=== PATIENT | female | born 1980 | race Caucasian/White ===

== ENCOUNTER → 2019-08-24 | Outpatient (CLI) | payer OTHER ==
--- NOTE | 2019-08-24 16:52 | MAM ---
EXAM DESCRIPTION: Diagnostic Mammo,Left (accession [id number]), Breast,Left (accession [id number]): Ultrasound CLINICAL HISTORY: 39 yearsFemaleABN MAMMO . Focal asymmetry left breast COMPARISON: Bilateral screening digital breast tomosynthesis July 11. TECHNIQUE: Left breast LM projection full-field images, digital tomosynthesis technique. Bilateral 2-D digital full-field images: LM and CC projections. CAD available for 2-D images.. Transcutaneous scanning of the left breast utilizing phelan-scale and Doppler modes. Scanning performed by the production lead ; observation by Dr. Ely. FINDINGS: The breast parenchymal density pattern is: Heterogeneously dense breast tissue, which may obscure small masses. No skin thickening or nipple retraction focal asymmetry again seen in the anterior third lower inner quadrant left breast. Associated with a solitary microcalcification. Left axillary lymph node. No new focal, stellate mass or density, and no suspicious microcalcifications left breast. Ultrasound: Scanning in the anterior aspect of the lower inner quadrant of the left breast. Focal fibroglandular tissues and fibrocystic tissues in the region of interest. One cyst measures approximately 5 x 3 mm with well-defined carreno, wider than tall orientation and posterior acoustic enhancement. No dominant solid mass, no large calcifications. No overlying skin changes. IMPRESSION: Benign exam. Fibroglandular and fibrocystic tissues. BIRAD CATEGORY: 2 BENIGN FINDINGS. RECOMMENDATIONS: FOLLOW UP: Return to routine digital bilateral mammographic screening, one year interval from June 2019. Written communication explaining the IMPRESSION and follow-up, will be mailed to the patient and referring health care provider. According to the [employer], yearly mammograms are recommended starting at age 40 and continuing as long as a woman is in good health. Any breast change noted on a breast self-exam should be reported promptly to the patient's healthcare provider. Breast MRI is recommended for women with an approximately 20-25% or greater lifetime risk of breast cancer, including women with a strong family history of breast or ovarian cancer and women who have been treated for Hodgkin's disease. A negative mammographic report should not delay tissue diagnosis in patients with significant clinical history or physical findings. Extremely dense breast tissue limits the sensitivity of digital mammography. Electronically signed by: James Ely MD 08/24/2019 4:50 PM CDT
== END ==
LOC: MAMMO 10:57
PROVIDERS: ATTEND Obstetrics & Gynecology
DX: R92.8 Other abnormal and inconclusive findings on diagnostic imaging of breast (principal)